=== PATIENT | female | born 1990 | race Caucasian/White ===

== ENCOUNTER 2016-03-16 20:23 | Emergency (ER) ==
[2016-03-16 21:41] LABS: URINE SOURCE CLEAN CATCH
[2016-03-16 21:42] LABS: MANUAL DIFF NEEDED? NO
[2016-03-16 21:47] LABS: BASO% 0.2 % (0.0-0.8); EOS# 0.05 X1000 (0.0-0.7); EOS% 0.5 % (0.0-10.0); HEMATOCRIT 38.5 % (37.0-47.0); HEMOGLOBIN 12.8 g/dL (12.0-16.0); IMM GRAN# 0.02 X1000 (0.0-0.04); IMM GRAN% 0.2 % (0.0-0.5); LYMPH# 1.81 X1000 (1.2-3.4); LYMPH% 19.1 % (20.5-51.1); MCH 31.5 PG (27-31); MCHC 33.2 g/dL (33-37); MCV 94.8 FL (81-99); MONO# 0.94 X1000 (0.11-0.59); MONO% 9.9 % (1.7-9.3); MPV 9.8 FL (7.4-10.4); NEUT% 70.1 % (42.2-75.2); PLT 289 X1000 (130-400); RBC 4.06 XMIL (4.2-5.4)
[2016-03-16 21:48] LABS: BILIRUBIN URINE NEGATIVE (NEGATIVE); BLOOD URINE 1+ (NEGATIVE); CLARITY CLEAR (CLEAR); COLOR YELLOW; GLUCOSE URINE NEGATIVE (NEGATIVE); LEUKOCYTES URINE 1+ (NEGATIVE); NITRITE URINE NEGATIVE (NEGATIVE); PROTEIN URINE TRACE mg/dL (NEGATIVE); SP GRAVITY URINE 1.015; UROBILINOGEN URINE NORMAL
[2016-03-16 22:05] LABS: URINE CULTURE PL NEEDED? YES; URINE EPITHELIAL CELLS >10 /HPF (<10); URINE RBC <10 /HPF (<10); URINE WBC <10 /HPF (<10)
[2016-03-16 22:54] LABS: AGAP 10; ALBUMIN 4.4 g/dL (3.5-5.0); ALKALINE PHOSPHATASE 71 U/L (32-104); BUN 13 mg/dL (8-22); CALCIUM 9.4 mg/dL (8.8-10.2); CHLORIDE 104 mmol/L (98-107); COSMO 276; GOT 13 U/L (10-30); GPT 9 U/L (10-36); POTASSIUM 3.7 mmol/L (3.5-5.1); SODIUM 138 mmol/L (136-145); TCO2 24 mmol/L (25-35); TOTAL PROTEIN 7.1 g/dL (6.3-8.3)
[2016-03-16] MEDS ORDERED: ZOFRAN ODT PO ONE (23:13)
[2016-03-16] MEDS ORDERED: PHENERGAN IM ONE (23:20)
--- NOTE | 2016-03-16 23:20 | PROVIDER DOCUMENTATION ---
HPI-Female /OB/Breast - General Chief Complaint: Female Stated Complaint: 6 WEEKS PREG/ABD PAIN Time Seen by Provider: 03/16/16 22:12 Source: reports: patient Allergies/Adverse Reactions: Patient Allergies Allergy/AdvReac Type Severity Reaction Status Date / Time cefaclor [From [facility]] Allergy RASH Verified 03/06/16 05:20 Sulfa (Sulfonamide Allergy RASH Verified 03/06/16 05:20 Antibiotics) - History of Present Illness-Female /OB Nature of Presenting Problem: 25 y/o WF c/o LLQ, suprapubic abd. pain with nausea x 1 day. Pt states spotting with wiping when she urinates only. Denies any collection in pad or pantyliner. States hx of 4 kidney stones over last year from L kidney and unsure if one passed, as she didn't have insurance to go see urology. Denies any CVA tenderness. Reports bilat low back pain. States and LMP was 06 February 2016. Has not seen OB yet. Review of Systems - Adult - REVIEW OF SYSTEMS - ADULT Constitutional: reports: no symptoms reported. denies: chills, fever Eyes: reports: no symptoms reported. denies: blurred vision, double vision Ears, Nose, Mouth & Throat: reports: no symptoms reported. denies: ear pain, nose pain Cardiovascular: reports: no symptoms reported. denies: chest pain, palpitations Respiratory: reports: no symptoms reported. denies: dyspnea on exertion, shortness of breath Gastrointestinal: reports: see HPI, abdominal pain, nausea. denies: constipation, diarrhea, vomiting Genitourinary: reports: see HPI, hematuria. denies: dysuria, frequency, frequent UTI's Musculoskeletal: reports: no symptoms reported. denies: joint pain, joint swelling Integumentary: reports: no symptoms reported. denies: nail changes, rash Neurological: reports: no symptoms reported. denies: numbness, paresthesia Psychiatric: reports: no symptoms reported Endocrine: reports: no symptoms reported. denies: cold intolerance, heat intolerance Hematologic/Lymphatic: reports: no symptoms reported. denies: easy bruising, prolonged bleeding Allergic/Immunologic: reports: no symptoms reported All Other Systems: Reviewed and Negative Past History - Adult - PAST MEDICAL HISTORY-ADULT Review of Records: reports: Nursing Assessment Review, Medications Reviewed Major Childhood Illnesses: reports: denies history Cardiovascular: reports: denies history Respiratory: reports: denies history Gastrointestinal: reports: denies history Obstetrical/Gynecological: reports: denies history Genitourinary: reports: kidney stones Musculoskeletal: reports: denies history Neurological: reports: denies history Endocrine/Immune: reports: denies history Other Conditions: reports: denies history - PRIOR SURGERIES/PROCEDURES Surgical/Procedure History: reports: reviewed, not pertinent - IMMUNIZATION STATUS Childhood Immunizations: See Nurse Assessment Flu Vaccine: See Nurse Assessment - FAMILY HISTORY Family History: reviewed, not pertinent - SOCIAL HISTORY Smoking: cigarettes, less than 1 pack/day Provider spent 3-5 mins advising pt. on dangers of tobacco.: Discussed manners to quit use, and f/u contacts for add'l counseling. Physical Exam-General - PHYSICAL EXAM-ADULT Initial Vital Signs Reviewed: Yes - CONSTITUTIONAL General Appearance: alert, mild distress, anxious - EYES Eyes: pink conjunctivae - HEAD, EARS, NOSE, MOUTH & THROAT HENMT: moist mucous membranes - NECK Neck: supple, normal inspection - RESPIRATORY Respiratory: no respiratory distress - CARDIOVASCULAR Cardiovascular: regular rate, rhythm. negative: bradycardia, tachycardia - GASTROINTESTINAL (ABDOMEN) Abdominal Exam: normal bowel sounds, soft, tenderness (LLQ, suprapubic). negative: distended, guarding, rigid, McBurney's point tenderness, Sierra's sign - MUSCULOSKELETAL Back Exam: no CVA tenderness, other (TTP bilat low back) Extremity: normal gait - SKIN Integumentary: normal color, normal turgor, warm/dry - NEUROLOGIC Neurologic: negative: aphasia - PSYCHIATRIC Psych/Mental Status: normal mood/affect, normal thought content, normal thought process, oriented x 3 Progress - PLAN OF CARE/RESULTS Progress/Plan/Lab Results: Laboratory Tests 03/16/16 03/16/16 03/16/16 20:45 21:31 21:31 WBC RBC Hgb Hct MCV MCH MCHC RDW Std Deviation Plt Count MPV Immature Gran % (Auto) Neut % (Auto) Lymph % (Auto) [place] % (Auto) Eos % (Auto) Baso % (Auto) Immature Gran # (Auto) Neut # (Auto) Lymph # (Auto) [place] # (Auto) Eos # (Auto) Baso # (Auto) Sodium 138 Potassium 3.7 Chloride 104 Carbon Dioxide 24 L Anion Gap 10 BUN 13 Creatinine 0.6 Estimated GFR/1.73 m2 > 60 BUN/Creatinine Ratio 22 Glucose 98 Calculated Osmolality 276 Calcium 9.4 Total Bilirubin 0.20 AST 13 ALT 9 L Alkaline Phosphatase 71 Total Protein 7.1 Albumin 4.4 Globulin 3.0 Albumin/Globulin Ratio 2.0 Ser , Semi-Qnt 1591.0 Urine Source CLEAN CATCH Urine Color YELLOW Urine Clarity CLEAR Urine pH 7.0 Ur Specific [place] 1.015 Urine Protein TRACE A Urine Ketones TRACE Urine Blood 1+ A Urine Nitrite NEGATIVE Urine Bilirubin NEGATIVE Urine Urobilinogen NORMAL Urine Microscopic RBC <10 Urine WBC 1+ A Urine Microscopic WBC <10 Ur Epithelial Cells >10 A Urine Bacteria 2+ Urine Glucose NEGATIVE ABO/Rh Screen RhIG Candidate? 03/16/16 03/16/16 21:31 21:31 WBC 9.50 RBC 4.06 L Hgb 12.8 Hct 38.5 MCV 94.8 MCH 31.5 H MCHC 33.2 RDW Std Deviation 12.7 Plt Count 289 MPV 9.8 Immature Gran % (Auto) 0.2 Neut % (Auto) 70.1 Lymph % (Auto) 19.1 L [place] % (Auto) 9.9 H Eos % (Auto) 0.5 Baso % (Auto) 0.2 Immature Gran # (Auto) 0.02 Neut # (Auto) 6.66 H Lymph # (Auto) 1.81 [place] # (Auto) 0.94 H Eos # (Auto) 0.05 Baso # (Auto) 0.02 Sodium Potassium Chloride Carbon Dioxide Anion Gap BUN Creatinine Estimated GFR/1.73 m2 BUN/Creatinine Ratio Glucose Calculated Osmolality Calcium Total Bilirubin AST ALT Alkaline Phosphatase Total Protein Albumin Globulin Albumin/Globulin Ratio Ser , Semi-Qnt Urine Source Urine Color Urine Clarity Urine pH Ur Specific [place] Urine Protein Urine Ketones Urine Blood Urine Nitrite Urine Bilirubin Urine Urobilinogen Urine Microscopic RBC Urine WBC Urine Microscopic WBC Ur Epithelial Cells Urine Bacteria Urine Glucose ABO/Rh A NEGATIVE Screen NEGATIVE RhIG Candidate? YES Orders Category Date Time Status US OBS COMPLETE < 14 WKS [US] Stat Exams 03/16/16 23:54 Completed CBC WITH DIFF [HEME] Stat Lab 03/16/16 21:31 Completed COMPREHENSIVE METABOLIC PANEL [CHEM] Stat Lab 03/16/16 21:31 Completed BLEED SCREEN [BBK] Stat Lab 03/16/16 21:31 Completed QUANT TEST Stat Lab 03/16/16 21:31 Completed RHOGAM WORKUP [BBK] Stat Lab 03/16/16 21:31 Completed RHOGAM [BBK] Stat Lab 03/16/16 21:[address] W/POSS RFLX CULT [URINALYSIS] Stat Lab 03/16/16 20:45 Completed URINE CULTURE [RM] Routine Lab 03/16/16 22:06 Results Acetaminophen with Codeine [Tylenol with Codeine #3] Med 03/17/16 02:19 Discontinued 1 each PO NOW ONE Ondansetron Odt [Zofran Odt] Med 03/16/16 23:13 Discontinued 4 mg PO NOW ONE Promethazine [Phenergan] Med 03/16/16 23:20 Discontinued 25 mg IM NOW ONE Vital Signs Temp Pulse Resp BP Pulse Ox 03/17/16 02:44 98.2 F 80 18 105/62 100 03/16/16 20:43 98 F 108 H 18 114/71 99 cefaclor [From [facility]] Allergy (Verified 03/06/16 05:20) RASH Sulfa (Sulfonamide Antibiotics) Allergy (Verified 03/06/16 05:20) RASH Nitrofurantoin Monohyd/M-Cryst [Macrobid 100 mg Capsule] 100 mg PO BID #20 capsule 03/06/16 Oxycodone/APAP 5 mg/325 mg [Percocet-5] 1 each PO Q4H PRN PRN #10 tablet Acetaminophen with Codeine [Tylenol with Codeine #3] 1 each PO Q4H PRN PRN #14 tablet 03/17/16 Pnv No.118/Iron Fumarate/FA [ 19 Chewable Tablet] 1 each PO DAILY #90 tab.chew 03/17/16 Laboratory 03/16/16 21:31 ABO/Rh A NEGATIVE Screen NEGATIVE RhIG Candidate? YES Discussed pt with Dr. Martins; he agreed with d/c plan after reviewing labwork. - ULTRASOUND (By Radiology) 1 US Study: Transvaginal Impression: See EMR Report (small, early gestational sac seen. No pole identified, possible early gestation. GS-0.38 cm too small to calculate. L cyst 2.1x2.5x1.9 cm. No adnexal mass. Free fluid seen. Blood flow both ovaries. -per Radiology) Departure - Departure Time of Disposition Order: 02:12 DIAGNOSIS: Ovarian cyst Qualifiers: Laterality: left Qualified Code(s): N83.202 - Unspecified ovarian cyst, left side Normal IUP (intrauterine ) on ultrasound Qualifiers: Trimester: first trimester Qualified Code(s): Z34.91 - Encounter for supervision of normal , unspecified, first trimester Disposition: HOME 01 Certified Medical Emergency: Emergent Condition: Stable Additional Instructions: Take medications as directed. Follow up with OB in 2 days for recheck. Stop smoking. ED Follow Up Instructions: You have been treated by a care provider in the Emergency Department. These instructions are being provided to you so you can have an understanding of how to care for yourself upon discharge. Upon discharge from the Emergency Department, you are responsible for making arrangements for follow-up care by a physician of your choice. Take all prescribed medications as directed. Return to the Emergency Department immediately for any new or worsening symptoms. You may call the Physician Referral phone number at [phone] to obtain a list of Physicians who are taking new patients. Prescriptions: Pnv No.118/Iron Fumarate/FA [ 19 Chewable Tablet] 1 each PO DAILY #90 tab.chew Acetaminophen with Codeine [Tylenol with Codeine #3] 1 each PO Q4H PRN PRN #14 tablet PRN Reason: Pain Referrals: None,PCP [Primary Care Provider] - Jason Tian MD [STAFF PHYSICIAN] - Forms: Return to School/Parent Work Instructions: Care, Ovarian Cyst Attestation - Physician/ Mid-level Attestation Patient care was provided by Mid-level provider (VAT WASHER/PA):: Yes Mid-level provider:: Tarah Lira Mid-level documentation review:: The Mid-level provider documentation, treatment plan and medical decision making was reviewed by the physician who agrees with all treatment and medical decision making by the P.
[2016-03-17] MEDS ORDERED: TYLENOL WITH CODEINE #3 PO ONE (02:19)
[2016-03-17 02:45] VITALS: BP 105/62
--- NOTE | 2016-03-17 12:59 | Diag Imaging Result Document ---
PROCEDURE NAME: US OBS COMPLETE < 14 WKS - 03/16/2016 OB ULTRASOUND: FINDINGS: There is a tiny gestational sac in the fundal endometrium. There is a small amount of free fluid. No pole is identified. There is a 2.5 cm cyst in the left ovary. IMPRESSION: Early intrauterine gestation. This is less than 5 weeks. Followup examinations with serial hCG determinations may be desirable.
== END 2016-03-17 02:44 | disposition home or self-care (01) ==
LOC: P.ED 20:23
DX: O26.891 Other specified pregnancy related conditions, first trimester (principal); Z3A.01 Less than 8 weeks gestation of pregnancy; R10.30 Lower abdominal pain, unspecified; R10.32 Left lower quadrant pain; Z87.442 Personal history of urinary calculi; M54.5 Low back pain; R31.9 Hematuria, unspecified; O34.81 Maternal care for other abnormalities of pelvic organs, first trimester; O21.0 Mild hyperemesis gravidarum; O99.331 Smoking (tobacco) complicating pregnancy, first trimester; F17.290 Nicotine dependence, other tobacco product, uncomplicated; Z71.6 Tobacco abuse counseling
CPT/HCPCS: 76801; 80053; 81001; 84702; 85025; 85461; 86900; 86901; 87088; 96372; J2550; J2790

== ENCOUNTER 2016-05-04 21:08 | Emergency (ER) ==
[2016-05-04] MEDS ORDERED: ZOFRAN ODT PO ONE (21:28)
[2016-05-04] MEDS ORDERED: MORPHINE IM ONE (22:29)
[2016-05-04] MEDS ORDERED: TYLENOL PO ONE (22:30)
[2016-05-04] MEDS ORDERED: NS 1,000 ML IV ONE (22:32)
[2016-05-04] MEDS ORDERED: OFIRMEV 1000 MG/ISOTONIC SOLN 100 ML IV ONE (22:32)
[2016-05-04 22:45] LABS: BILIRUBIN URINE NEGATIVE (NEGATIVE); BLOOD URINE TRACE (NEGATIVE); CLARITY CLEAR (CLEAR); COLOR YELLOW; GLUCOSE URINE NEGATIVE (NEGATIVE); LEUKOCYTES URINE NEGATIVE (NEGATIVE); NITRITE URINE NEGATIVE (NEGATIVE); PROTEIN URINE NEGATIVE (NEGATIVE); UROBILINOGEN URINE NORMAL
[2016-05-04 23:01] LABS: URINE CULTURE PL NEEDED? YES; URINE EPITHELIAL CELLS <10 /HPF (<10); URINE RBC <10 /HPF (<10); URINE SOURCE CLEAN CATCH; URINE WBC <10 /HPF (<10)
[2016-05-05] MEDS ORDERED: MORPHINE IV ONE (00:06)
--- NOTE | 2016-05-05 00:55 | PROVIDER DOCUMENTATION ---
HPI-Female /OB/Breast <Abundio Duckworth Krishna - Last Filed: 05/05/16 00:54> - General Source: reports: patient - History of Present Illness-Female /OB Does patient report she is ?: Yes Location of complaint: reports: left flank Radiation: reports: none Quality of Pain: reports: aching Severity in ED: reports: mild Onset/Duration: reports: this morning Timing: reports: still present Context/Activities at Onset: reports: none Associated Symptoms: reports: denies symptoms Similar Symptoms Previously?: Yes Recently seen or treated by another doctor?: No - LMP/ History Menstrual Status: currently <Fatimah Nguyen - Last Filed: 05/05/16 01:04> - General Chief Complaint: Flank Pain Stated Complaint: POSS KIDNEY STONE/12 WKS PREG Time Seen by Provider: 05/04/16 22:20 Allergies/Adverse Reactions: Patient Allergies Allergy/AdvReac Type Severity Reaction Status Date / Time cefaclor [From [facility]] Allergy RASH Verified 05/04/16 21:16 Sulfa (Sulfonamide Allergy RASH Verified 05/04/16 21:16 Antibiotics) Home Medications: Home Medication List Medication Instructions Recorded Confirmed Last Taken Type Pnv No.118/Iron Fumarate/FA 1 each PO DAILY #90 tab.chew 03/17/16 05/04/16 Rx [ 19 Chewable Tablet] Promethazine [Phenergan] 1 tab PO DAILY 05/04/16 05/04/16 05/04/16 History Acetaminophen/Diphenhydramine 1 each PO Q6-8H PRN PRN #30 tablet 05/05/16 Unknown Rx [Percogesic 325-12.5 mg Tablet] - History of Present Illness-Female /OB Nature of Presenting Problem: 25 year old F presents to the ED with a cc of left flank pain with an onset of this morning. Pt states that she was diagnosed with a kidney stone last month. Pt states she passed it. Pt states she is 12 weeks . (Fatimah Nguyen) Review of Systems - Adult - REVIEW OF SYSTEMS - ADULT Constitutional: denies: chills, fever Eyes: reports: no symptoms reported Ears, Nose, Mouth & Throat: reports: no symptoms reported Cardiovascular: reports: no symptoms reported Respiratory: denies: cough, shortness of breath Gastrointestinal: denies: abdominal pain, nausea, vomiting Genitourinary: reports: flank pain. denies: dysuria Musculoskeletal: denies: muscle aches, muscle weakness Integumentary: reports: no symptoms reported Neurological: reports: no symptoms reported Psychiatric: reports: no symptoms reported Endocrine: reports: no symptoms reported Hematologic/Lymphatic: reports: no symptoms reported Allergic/Immunologic: reports: no symptoms reported All Other Systems: Reviewed and Negative <Fatimah Nguyen - Last Filed: 05/05/16 01:04> Past History - Adult - PAST MEDICAL HISTORY-ADULT Major Childhood Illnesses: reports: denies history Cardiovascular: reports: denies history Respiratory: reports: denies history Gastrointestinal: reports: denies history Obstetrical/Gynecological: reports: denies history Genitourinary: reports: kidney stones Musculoskeletal: reports: denies history Neurological: reports: denies history Endocrine/Immune: reports: denies history Other Conditions: reports: denies history - PRIOR SURGERIES/PROCEDURES Surgical/Procedure History: reports: reviewed, not pertinent - IMMUNIZATION STATUS Childhood Immunizations: See Nurse Assessment Flu Vaccine: See Nurse Assessment - FAMILY HISTORY Family History: reviewed, not pertinent <Abundio Duckworth - Last Filed: 05/05/16 00:54> - PAST MEDICAL HISTORY-ADULT Review of Records: reports: Nursing Assessment Review, Medications Reviewed Major Childhood Illnesses: reports: denies history Cardiovascular: reports: denies history Respiratory: reports: denies history Gastrointestinal: reports: denies history Obstetrical/Gynecological: reports: denies history Genitourinary: reports: denies history Musculoskeletal: reports: denies history Neurological: reports: denies history Endocrine/Immune: reports: denies history Other Conditions: reports: denies history - PRIOR SURGERIES/PROCEDURES Surgical/Procedure History: reports: tonsillectomy, orthopedic (extremity) - IMMUNIZATION STATUS Childhood Immunizations: See Nurse Assessment Flu Vaccine: See Nurse Assessment - FAMILY HISTORY Family History: reviewed, not pertinent - SOCIAL HISTORY Smoking: non-smoker Substance Use: none/never Alcohol Use Frequency: never <Fatimah Nguyen - Last Filed: 05/05/16 01:04> Physical Exam-General - PHYSICAL EXAM-ADULT Initial Vital Signs Reviewed: Yes - CONSTITUTIONAL General Appearance: appears well, alert, no apparent distress - RESPIRATORY Respiratory: chest non-tender, lungs clear, normal breath sounds - CARDIOVASCULAR Cardiovascular: normal peripheral pulses, regular rate, rhythm, no edema - GASTROINTESTINAL (ABDOMEN) Abdominal Exam: normal bowel sounds, non tender, soft - MUSCULOSKELETAL Back Exam: CVA tenderness (left) Extremity: normal inspection - SKIN Integumentary: normal color, normal turgor, warm/dry - PSYCHIATRIC Psych/Mental Status: normal mood/affect, normal thought content, normal thought process, oriented x 3 <Patrick,Fatimah - Last Filed: 05/05/16 01:04> Progress - ULTRASOUND (By Radiology) 1 US Study: other (retroperitoneal) Impression: Normal US Results: Normal kidneys-Dr. Narayanan-radiology [facility] <Fatimah Nguyen - Last Filed: 05/05/16 01:04> Departure - Departure Time of Disposition Order: 00:54 Certified Medical Emergency: Emergent <Abundio Duckworth - Last Filed: 05/05/16 00:54> <aFtimah Nguyen - Last Filed: 05/05/16 01:04> - Departure DIAGNOSIS: Kidney stones Disposition: HOME 01 Condition: Good Additional Instructions: Drink plenty of fluids. Follow up with your ROLLER MECHANIC. ED Follow Up Instructions: You have been treated by a care provider in the Emergency Department. These instructions are being provided to you so you can have an understanding of how to care for yourself upon discharge. Upon discharge from the Emergency Department, you are responsible for making arrangements for follow-up care by a physician of your choice. Take all prescribed medications as directed. Return to the Emergency Department immediately for any new or worsening symptoms. You may call the Physician Referral phone number at [phone] to obtain a list of Physicians who are taking new patients. Prescriptions: Acetaminophen/Diphenhydramine [Percogesic 325-12.5 mg Tablet] 1 each PO Q6-8H PRN PRN #30 tablet PRN Reason: Pain Referrals: Jason Tian MD [Primary Care Provider] - Forms: Return to School/Parent Work Instructions: Acetaminophen; Diphenhydramine oral caplet, capsule, or tablet, Kidney Stones, [id number] Attestation - Physician/ JOHN Attestation Patient care was provided by Advanced Practice Provider:: Yes Advanced Practice Provider:: Abundio Duckworth Advanced Practice Provider documentation review:: The Mid-level provider documentation, treatment plan and medical decision making was reviewed by the physician who agrees with all treatment and medical decision making by the MLP. <Abundio Duckworth - Last Filed: 05/05/16 00:54> - Scribe Verification/Attestation Scribe:: Fatimah Nguyen Acting as Scribe for:: Abundio Duckworth Scribe documention review:: This chart was documented by a scribe and accurately reflects the service the provider performed and the decisions made by the provider. <Fatimah Nguyen - Last Filed: 05/05/16 01:04> Physician Attestation - Physician Attestation I, the provider, attest to the following statement:: Abundio Duckworth Physician documentation Attestation:: This documentation recorded by the scribe accurately reflects the service I personally performed and the decisions made by me. <Fatimah Nguyen - Last Filed: 05/05/16 01:04>
[2016-05-05 01:19] VITALS: BP 99/68
--- NOTE | 2016-05-05 09:46 | Diag Imaging Result Document ---
PROCEDURE NAME: US RENAL 2 (RETROPER) COMPLETE - 05/04/2016 RENAL ULTRASOUND: INDICATION: Possible kidney stones. 12 weeks . FINDINGS: The kidneys appear normal in size and echotexture. There is no hydronephrosis or nephrolithiasis. No focal renal masses are appreciated. The bladder is incompletely distended. IMPRESSION: No acute abnormalities are appreciated. No hydronephrosis or nephrolithiasis. Preliminary interpretation was given by the on-call radiologist.
== END 2016-05-05 01:19 | disposition home or self-care (01) ==
LOC: P.ED 21:08
DX: O26.891 Other specified pregnancy related conditions, first trimester (principal); N20.0 Calculus of kidney; Z3A.12 12 weeks gestation of pregnancy; R10.9 Unspecified abdominal pain; Z87.442 Personal history of urinary calculi
CPT/HCPCS: 76770; 81001; 87088; 96365; 96375; J0131; J2270; J7030

== ENCOUNTER 2016-11-01 18:52 | Inpatient (IN) ==
[2016-11-01 19:56] LABS: URINE SOURCE VOIDED
[2016-11-01 20:01] LABS: BILIRUBIN URINE NEGATIVE (NEGATIVE); BLOOD URINE 1+ (NEGATIVE); CLARITY CLEAR (CLEAR); COLOR YELLOW; GLUCOSE URINE NEGATIVE (NEGATIVE); LEUKOCYTES URINE 1+ (NEGATIVE); NITRITE URINE NEGATIVE (NEGATIVE); PROTEIN URINE NEGATIVE (NEGATIVE); SP GRAVITY URINE 1.005; UROBILINOGEN URINE NORMAL
[2016-11-01] MEDS ORDERED: STADOL IV PRN (21:19)
[2016-11-01] MEDS ORDERED: TYLENOL PO PRN (21:19)
[2016-11-01] MEDS ORDERED: REGLAN PO ONE (21:19)
[2016-11-01] MEDS ORDERED: PEPCID IV PRN (21:19)
[2016-11-01] MEDS ORDERED: ZOFRAN IV PRN (21:19)
[2016-11-01] MEDS ORDERED: PEPCID PO ONE (21:19)
[2016-11-01] MEDS ORDERED: LR 1,000 ML IV SCH (21:19)
[2016-11-01] MEDS ORDERED: PEPCID PO PRN (21:19)
[2016-11-01] MEDS ORDERED: SODIUM CHLORIDE 0.9% INJ SCH (21:30)
[2016-11-01 22:23] LABS: MANUAL DIFF NEEDED? NO
[2016-11-01 22:24] LABS: BASO% 0.1 % (0.0-0.8); EOS# 0.05 X1000 (0.0-0.7); EOS% 0.3 % (0.0-10.0); HEMOGLOBIN 12.3 g/dL (12.0-16.0); IMM GRAN# 0.06 X1000 (0.0-0.04); IMM GRAN% 0.4 % (0.0-0.5); LYMPH# 1.73 X1000 (1.2-3.4); MCH 32.1 PG (27-31); MCHC 34.2 g/dL (33-37); MONO# 1.39 X1000 (0.11-0.59); MONO% 8.9 % (1.7-9.3); MPV 10.1 FL (7.4-10.4); NEUT% 79.3 % (42.2-75.2); PLT 265 X1000 (130-400); RBC 3.83 XMIL (4.2-5.4)
[2016-11-01 22:45] LABS: UR AMPHETAMINES QUAL NONE DETECTED (NONE DETECT); UR BARBITUATES QUAL NONE DETECTED (NONE DETECT); UR BENZODIAZEPIN QUAL NONE DETECTED (NONE DETECT); UR CANNABINOIDS QUAL NONE DETECTED (NONE DETECT); UR COCAINE QUAL NONE DETECTED (NONE DETECT); UR MDMA QUAL NONE DETECTED (NONE DETECT); UR METHADONE QUAL NONE DETECTED (NONE DETECT); UR METHAMPHETAMINE QUAL NONE DETECTED (NONE DETECT); UR OPIATES QUAL NONE DETECTED (NONE DETECT); UR OXYCODONE QUAL NONE DETECTED (NONE DETECT); UR PCP QUAL NONE DETECTED (NONE DETECT); UR TCA QUAL NONE DETECTED (NONE DETECT)
[2016-11-02] MEDS ORDERED: XYLOCAINE 1% INJ ONE (00:44)
[2016-11-02] MEDS ORDERED: MINERAL OIL TOP ONE (00:44)
[2016-11-02] MEDS ORDERED: XYLOCAINE-MPF 1% INJ ONE (01:00)
[2016-11-02] MEDS ORDERED: PITOCIN 30 UNITS/LR 30 UNITS/500 ML IV.SOLN IV SCH (02:00)
[2016-11-02] MEDS ORDERED: M-M-R II VACCINE SUBQ ONE (03:08)
[2016-11-02] MEDS ORDERED: AMBIEN PO PRN (03:08)
[2016-11-02] MEDS ORDERED: HYDROXYZINE PO PRN (03:08)
[2016-11-02] MEDS ORDERED: BENADRYL PO PRN (03:08)
[2016-11-02] MEDS ORDERED: PITOCIN 30 UNITS/LR 30 UNITS/500 ML IV.SOLN IV ONE (03:08)
[2016-11-02] MEDS ORDERED: BENADRYL IV PRN (03:08)
[2016-11-02] MEDS ORDERED: PITOCIN IM PRN (03:08)
[2016-11-02] MEDS ORDERED: CYTOTEC PO PRN (03:08)
[2016-11-02] MEDS ORDERED: XYLOCAINE-MPF 1% INJ PRN (03:08)
[2016-11-02] MEDS ORDERED: BOOSTRIX VACCINE IM ONE (03:08)
[2016-11-02] MEDS ORDERED: HYDROXYZINE IM PRN (03:08)
[2016-11-02] MEDS ORDERED: PITOCIN 20 UNITS/LR 20 UNITS/1,000 ML IV.SOLN IV SCH (03:08)
[2016-11-02] MEDS: PERI MEDS (DERMOPLAST/NUPERCAINAL/TUCKS) MISC PRN (03:54)
[2016-11-02] MEDS: NORCO-5 PO PRN ×3 (05:04→18:35)
[2016-11-02] MEDS: MOTRIN PO PRN ×2 (05:05→18:35)
--- NOTE | 2016-11-02 07:27 | OPERATIVE NOTE ---
PROCEDURE DATE: 11/02/2016 PREPROCEDURE DIAGNOSIS: G1 at 37 weeks and 5 days with spontaneous rupture of membranes and labor. POSTPROCEDURE DIAGNOSIS: G 1, P 1, status post spontaneous vaginal delivery. HOSPITAL COURSE: The patient was admitted on 11/01/2016 with complaints of SROM at 1840 of clear fluid. She was admitted and found to be laboring with her cervix approximately 2.5 to 3 cm and chirag in a regular pattern. She was admitted for routine labor and quickly progressed to complete and pushed for less than an hour and had a controlled spontaneous vaginal delivery over intact perineum of a 6 pound 13 ounce male infant with Apgars of 9 and 10. After baby was delivered, the baby was bulb suctioned and cord was clamped and cut and baby was handed off to awaiting nursery staff. Cord blood was obtained, and the placenta was then gently massaged from the uterus. The fundus was noted to be firm and bleeding was noted to be minimal. She was inspected for lacerations, and she did have a small left vaginal sidewall tear that extended into a first-degree labial. This was repaired with a 2-0 Polysorb in the usual fashion. Excellent hemostasis was noted. At the laceration site, no other tears were noted. This was repaired under local lidocaine anesthesia. Estimated blood loss less than 300 mL. All sponge lap and needle counts were correct x2, and the patient went to her room in stable condition. cc: Peggy Damon MD
[2016-11-02] MEDS: PRECARE PO SCH (08:35)
[2016-11-02] MEDS: PERICOLACE PO SCH (20:20)
[2016-11-03] MEDS: MOTRIN PO PRN ×2 (03:58→13:50)
[2016-11-03] MEDS: NORCO-5 PO PRN ×5 (03:58→20:24)
[2016-11-03 04:56] LABS: HEMATOCRIT 29.2 % (37.0-47.0); HEMOGLOBIN 9.8 g/dL (12.0-16.0); MCH 31.9 PG (27-31); MCHC 33.6 g/dL (33-37); MCV 95.1 FL (81-99); MPV 9.9 FL (7.4-10.4); RBC 3.07 XMIL (4.2-5.4)
[2016-11-03] MEDS: PRECARE PO SCH (09:05)
[2016-11-03] MEDS: PERICOLACE PO SCH (20:24)
[2016-11-04] MEDS: NORCO-5 PO PRN ×3 (00:32→10:11)
[2016-11-04] MEDS: MOTRIN PO PRN ×2 (00:32→08:37)
[2016-11-04 08:25] VITALS: BP 110/64
[2016-11-04] MEDS: PRECARE PO SCH (08:37)
[2016-11-04] MEDS: PERI MEDS (DERMOPLAST/NUPERCAINAL/TUCKS) MISC PRN (10:12)
[2016-11-04] MEDS ORDERED: EPIFOAM FOAM TOP PRN (10:16)
== END 2016-11-04 12:30 | disposition home or self-care (01) ==
LOC: P.OPLD 18:52 → P.LD 18:55 → P.WC 11-02 08:27
PROVIDERS: ADMIT Obstetrics & Gynecology; ATTEND Obstetrics & Gynecology